=== PATIENT | female | born 1970 | race Caucasian/White ===

== ENCOUNTER 2024-04-27 14:21 | Outpatient (CLI) | payer BC, SELFPAY ==
[2024-04-27 16:05] LABS: Bacterial Vaginosis* Negative (Negative); Candida glab/krus NOT DETECTED (No Detected); Candida species NOT DETECTED (No Detected); Trichomonas vaginalis NOT DETECTED (No Detected)
== END 2024-04-27 14:22 | disposition home or self-care (01) ==
PROVIDERS: PCP Family Medicine; Visit Provider Obstetrics & Gynecology
DX: N89.8 Other specified noninflammatory disorders of vagina (principal)
CPT/HCPCS: 81513; 87481; 87661

== ENCOUNTER 2024-04-30 13:38 | Outpatient (CLI) | payer BC, SELFPAY ==
--- NOTE | 2024-04-30 13:45 | CRLHL7_ITS ---
For Patients: As a result of the Century Cures Act, medical imaging exams and procedure reports are released immediately into your electronic medical record. You may view this report before your referring provider. If you have questions, please contact your health care provider. CLINICAL HISTORY: Pelvic and perineal pain TECHNIQUE: 2D fernández scale ultrasound. In addition color Doppler and spectral Doppler analysis was performed of the pelvis using a transabdominal and transvaginal approach. Comparison 03/05/2017 FINDINGS: Uterus measures 5.0 x 1.8 x 3.9 cm. Uterine echotexture is heterogeneous. No fibroid is present. Endometrium measures 2 millimeters. Prior endometrial ablation. The right ovary measures 3.6 x 0.6 x 1.6 cm in size and the left ovary is not visualized. The right ovary demonstrates normal arterial and venous blood flow on color Doppler and spectral Doppler analysis. There are no suspicious fluid collections within the cul-de-sac. IMPRESSION: No uterine fibroid. Normal right ovary. Left ovary not visualized. Dictated by Gurpreet Zeng MD @ 04/30/2024 8:57:34 PM (Electronically Signed)
== END 2024-04-30 13:39 | disposition home or self-care (01) ==
LOC: US 13:38
PROVIDERS: PCP Family Medicine; Visit Provider Obstetrics & Gynecology
DX: R10.2 Pelvic and perineal pain (principal)
CPT/HCPCS: 76830; 76856; 93976